=== PATIENT | female | born 1960 | race Caucasian/White ===

== ENCOUNTER 2021-05-10 05:35 | Emergency (ER) | payer OTHER, MEDICAID, SELFPAY ==
[2021-05-10 05:45] VITALS: BP 153/89; PULSE 88; RESP 16; TEMP 36.6; O2SAT 99; BMI 27.3
--- NOTE | 2021-05-10 05:53 | ED.DENTAL ---
HPI - Dental/Oral General Chief complaint: Dental/Oral Stated complaint: broken tooth, thinks abscess in tooth Time Seen by Provider: 05/10/21 05:49 Source: patient Mode of arrival: Ambulatory History of Present Illness HPI Narrative: 60-year-old woman presents with 2 days of increasing dental pain left upper quadrant now radiating a up into the maxillary area with concerns of increasing swelling. She describes Heights hypersensitivity entire area even to brushing. She has multiple missing teeth and overall poor dentition. No significant cervical adenopathy. Related Data Previous Rx's Medication Instructions Recorded amoxicillin 500 mg capsule 500 mg PO TID #21 cap 05/10/21 Allergies Allergy/AdvReac Type Severity Reaction Status Date / Time Sulfa (Sulfonamide Allergy Verified 05/10/21 05:45 Antibiotics) Review of Systems Review of Systems Narrative: Remainder of complete review of systems is otherwise unremarkable except for that included in the HPI. Patient History Social History Smoking Status: Current every day smoker Smoking Status: Current every day smoker alcohol intake frequency: holidays/special occasions only Substance Use Type: does not use Exam Narrative Exam Narrative: General: Alert appropriate in no acute distress H EENT: Mild fullness over the left maxilla. Multiple teeth missing in the left upper quadrant it is difficult to tell exactly which tooth is causing the most problems Respiratory: Able to speak in full sentences, no obvious respiratory distress Skin: No obvious rashes, warm and dry Neurologic: Grossly intact no obvious asymmetries or abnormalities Psych: appropriate insight and affect, cooperative Initial Vital Signs Initial Vital Signs: Vital Signs Temperature 97.8 F 05/10/21 05:45 Pulse Rate 88 05/10/21 05:45 Respiratory Rate 16 05/10/21 05:45 Blood Pressure 153/89 H 05/10/21 05:45 Pulse Oximetry 99 05/10/21 05:45 Course Orders Ordered: Discontinued Medications Acetaminophen (Acetaminophen 325 Mg Tablet) 325 mg PO NOW ONE Stop: 05/10/21 05:50 Amoxicillin (Amoxicillin 250 Mg Capsule) 500 mg PO NOW ONE Stop: 05/10/21 05:50 Ibuprofen (Ibuprofen 400 Mg Tablet) 400 mg PO NOW ONE Stop: 05/10/21 05:50 Vital Signs Vital signs: Vital Signs - 8 hr 05/10/21 05:45 Temperature 97.8 F Pulse Rate 88 Respiratory Rate 16 Blood Pressure 153/89 H Pulse Oximetry 99 MDM - Dental/Oral MDM Narrative Medical decision making narrative: 60-year-old woman with multiple broken teeth and overall poor dental hygiene presents with 2 days of increasing pain in the left upper quadrant. Consistent with developing dental infection. She is placed on amoxicillin. Encouraged her to schedule appointment with see Mar where she has previously been seen. No evidence of sinusitis, meningitis or obvious draining abscess. She is safe for home discharge Discharge Plan Departure Patient Disposition: Home Clinical Impression: Toothache, Dental abscess Instructions: DI for Dental Pain Activity Restrictions/Additional Instructions: I am sorry that your teeth are bothering you so much With increased pain sensitivity and swelling on the left side I do suspect that your developing a dental infection. Using 400 mg of ibuprofen (2 [id number] pills) and 1 Tylenol every 6 hours can be very helpful in controlling pain. I am going to give you 5 days of amoxicillin, 3 times a day. Well medications can help with the symptoms definitive treatment for your issues is going to be with the dentist. I would encourage you to schedule an appointment with see Mar even if it does and up being a month in the future. I hope you heal quickly Prescriptions: New amoxicillin 500 mg capsule 500 mg PO TID Qty: 21 RF: 0
[2021-05-10] MEDS: ACETAMINOPHEN 325 MG TABLET PO (05:55)
[2021-05-10] MEDS: IBUPROFEN 400 MG TABLET PO (05:55)
[2021-05-10] MEDS: AMOXICILLIN 250 MG CAPSULE 500 MG PO (05:55)
== END 2021-05-10 05:57 | disposition home or self-care (01) ==
PROVIDERS: Emergency Provider Emergency Medicine
DX: K04.7 Periapical abscess without sinus (principal); K08.89 Other specified disorders of teeth and supporting structures
CPT/HCPCS: 99283

== ENCOUNTER 2022-04-25 15:51 | Emergency (ER) | payer OTHER, MEDICAID, SELFPAY ==
[2022-04-25] VITALS (9 sets, daily range): BP systolic 109–140; BP diastolic 69–91; PULSE 51–82; RESP 12–18; TEMP 36.1; O2SAT 95–100; BMI 25.2
--- NOTE | 2022-04-25 16:11 | DI.RAD.S_ITS ---
PROCEDURE: XR CHEST 2V INDICATIONS: cough for one month TECHNIQUE: 2 views of the chest were acquired. COMPARISON: None. FINDINGS: Surgical changes and devices: None. Lungs and pleura: Lungs are clear. No pleural effusions or pneumothorax. Mediastinum: Mediastinal contours are normal. Heart size is normal. Bones and chest wall: No suspicious bony abnormalities. Soft tissues appear unremarkable. IMPRESSION: No acute cardiopulmonary abnormality. Dictated by: Naseem Santos M.D. on 04/25/2022 at 16:09 Approved by: Naseem Santos M.D. on 04/25/2022 at 16:10
[2022-04-25 16:29] LABS: COVID19 -Nasal RAPID Negative (Negative)
--- NOTE | 2022-04-25 17:19 | ED.URI ---
HPI - URI/Sore Throat <SHANE Hook - Last Filed: 04/25/22 19:10> General Chief Complaint: Upper Respiratory Symptoms Stated Complaint: chest [id number] Time Seen by Provider: 04/25/22 17:04 Source: patient Mode of arrival: Ambulatory History of Present Illness HPI Narrative: 61-year-old female presents to the emergency department with complaints of cough and runny nose x1 month. Patient states that she is feeling a lot of pressure on her chest and feels like an elephant is sitting on her chest. Patient states that she has had a hacking productive cough for 2 months. Patient reports bilateral lower leg swelling this morning only. Patient admits to smoking daily but only a few cigarettes. Patient has a history methamphetamine use. Patient denies any history asthma, pneumonia or COPD. Related Data Previous Rx's Medication Instructions Recorded amoxicillin 500 mg capsule 500 mg PO TID #21 caps 05/10/21 albuterol sulfate 90 mcg/actuation 2 puff inhalation Q4-6H PRN 04/25/22 aerosol inhaler (ProAir HFA) shortness of breath or wheezing #6.7 grams prednisone 20 mg tablet 20 mg PO DAILY copd exacerbation 04/25/22 #15 tabs Allergies Allergy/AdvReac Type Severity Reaction Status Date / Time Sulfa (Sulfonamide Allergy Verified 05/10/21 05:45 Antibiotics) Review of Systems <SHANE Hook - Last Filed: 04/25/22 19:10> Review of Systems Narrative: Patient denies current fever, chills, blurry or double vision, earache, sore throat, new loss of smell or taste, chest pain, N&V, diarrhea, constipation, abdominal pain, dysuria, frequency, urgency, muscle or body aches, skin changes, numbness & tingling or limb weakness. Patient History <SHANE Hook - Last Filed: 04/25/22 19:10> Social History Smoking Status: Current every day smoker Smoking Status: Current every day smoker tobacco type: cigarettes alcohol intake frequency: holidays/special occasions only Substance Use Type: former substance user and methamphetamine Exam <SHANE Hook - Last Filed: 04/25/22 19:10> Initial Vital Signs Initial Vital Signs: Vital Signs Temperature 97.0 F L 04/25/22 16:02 Pulse Rate 82 04/25/22 16:02 Respiratory Rate 16 04/25/22 16:02 Blood Pressure 140/91 H 04/25/22 16:02 Pulse Oximetry 99 04/25/22 16:02 Oxygen Delivery Method 04/25/22 16:02 Verified Const General: cooperative and disheveled HENMT Head: normocephalic Eyes Pupils: PERRL Resp Effort & Inspection: cough Quality of cough: wet Auscultation: rhonchi and wheezes GI Palpation: soft Neuro General: patient alert and patient oriented x3 Extrem Right lower extremity: edema Details: 1+ Left lower extremity: edema Details: 1+ Psych Appearance: disheveled <Violeta Carmona DO - Last Filed: 04/27/22 09:09> Initial Vital Signs Initial Vital Signs: Vital Signs Temperature 97.0 F L 04/25/22 16:02 Pulse Rate 82 04/25/22 16:02 Respiratory Rate 16 04/25/22 16:02 Blood Pressure 140/91 H 04/25/22 16:02 Pulse Oximetry 99 04/25/22 16:02 Oxygen Delivery Method 04/25/22 16:02 Course <SHANE Hook - Last Filed: 04/25/22 19:10> Orders Ordered: Discontinued Medications Albuterol/Ipratropium (Albuterol/Ipratropium 3 Ml Ampul) 3 ml INH NOW ONE Stop: 04/25/22 17:52 Last Admin: 04/25/22 18:21 Dose: 3 ml Documented By: MICHAEL Vital Signs Vital signs: Vital Signs - 8 hr 04/25/22 16:02 04/25/22 18:22 04/25/22 16:23 Temperature 97.0 F L Pulse Rate 82 73 64 Respiratory Rate 16 12 Blood Pressure 140/91 H Pulse Oximetry 99 98 98 Oxygen Delivery Method Room Air Room Air 04/25/22 16:30 04/25/22 17:00 04/25/22 17:30 Temperature Pulse Rate 63 55 L 53 L Respiratory Rate Blood Pressure Pulse Oximetry 98 95 100 Oxygen Delivery Method 04/25/22 17:44 04/25/22 17:44 04/25/22 18:00 Temperature Pulse Rate 73 Respiratory Rate 16 Blood Pressure 109/72 114/69 Pulse Oximetry 96 Oxygen Delivery Method 04/25/22 18:00 04/25/22 18:30 04/25/22 18:30 Temperature Pulse Rate 72 51 L Respiratory Rate 18 Blood Pressure 137/81 Pulse Oximetry 96 100 Oxygen Delivery Method 04/25/22 18:30 Temperature Pulse Rate 71 Respiratory Rate 17 Blood Pressure Pulse Oximetry 100 Oxygen Delivery Method <Violeta Carmona DO - Last Filed: 04/27/22 09:09> Orders Ordered: Discontinued Medications Albuterol/Ipratropium (Albuterol/Ipratropium 3 Ml Ampul) 3 ml INH NOW ONE Stop: 04/25/22 17:52 Last Admin: 04/25/22 18:21 Dose: 3 ml Documented By: MICHAEL Vital Signs Vital signs: Vital Signs - 8 hr 04/25/22 16:02 04/25/22 18:22 04/25/22 16:23 Temperature 97.0 F L Pulse Rate 82 73 64 Respiratory Rate 16 12 Blood Pressure 140/91 H Pulse Oximetry 99 98 98 Oxygen Delivery Method Room Air Room Air 04/25/22 16:30 04/25/22 17:00 04/25/22 17:30 Temperature Pulse Rate 63 55 L 53 L Respiratory Rate Blood Pressure Pulse Oximetry 98 95 100 Oxygen Delivery Method 04/25/22 17:44 04/25/22 17:44 04/25/22 18:00 Temperature Pulse Rate 73 Respiratory Rate 16 Blood Pressure 109/72 114/69 Pulse Oximetry 96 Oxygen Delivery Method 04/25/22 18:00 04/25/22 18:30 04/25/22 18:30 Temperature Pulse Rate 72 51 L Respiratory Rate 18 Blood Pressure 137/81 Pulse Oximetry 96 100 Oxygen Delivery Method 04/25/22 18:30 Temperature Pulse Rate 71 Respiratory Rate 17 Blood Pressure Pulse Oximetry 100 Oxygen Delivery Method MDM - URI/Sore Throat <SHANE Hook - Last Filed: 04/25/22 19:10> Differential Diagnosis Differential diagnosis: Likely upper respiratory infection and other (COPD Exacerbation) Lab Data Result diagrams: 04/25/22 17:43 04/25/22 17:43 Labs: Lab Results 04/25/22 04/25/22 04/25/22 Range/Units 16:08 17:43 17:43 WBC 5.5 (4.5-11.0) X10^3/uL RBC 4.58 (4.0-5.2) X10^6/uL Hgb 13.5 (12.0-16.0) g/dL Hct 39.6 (36-46) % MCV 86.3 (80-100) fL MCH 29.5 (26-34) PG MCHC 34.2 (30-36) % RDW 13.3 (11.6-14.8) % Plt Count 194 (150-400) X10^3/uL Neut % (Auto) 70.1 (50-75) % Lymph % (Auto) 22.0 L (25-40) % [place] % (Auto) 5.7 (3-14) % Eos % (Auto) 1.6 L (2-4) % Baso % (Auto) 0.6 (0-2) % Neut # (Auto) 3800 (0609-7410) /uL Lymph # (Auto) 1200 (3604-2107) /uL [place] # (Auto) 300 (0-900) /uL Eos # (Auto) 100 (0-450) /uL Baso # (Auto) 0 (0-100) /uL Sodium 138 (137-145) mmol/L Potassium 4.0 (3.4-5.1) mmol/L Chloride 106 (98-107) mmol/L Carbon Dioxide 28 (22-32) mmol/L BUN 15 (7-17) mg/dL Creatinine 0.62 (0.52-1.04) mg/dL Estimated GFR > 60 (>60) mL/min BUN/Creatinine Ratio 24.2 H (6-22) Glucose 113 H (80-110) mg/dL Calcium 8.6 (8.4-10.2) mg/dL Magnesium (1.6-2.3) mg/dL Total Bilirubin 0.4 (0.2-1.3) mg/dL AST 30 (14-36) IU/L ALT 28 (<35) IU/L Alkaline Phosphatase 94 (38-126) U/L Total Creatine Kinase 46 (30-135) U/L CK-MB (CK-2) TNP CK-MB (CK-2) Rel Index TNP Troponin I < 0.012 (0.01-0.034) ng/mL Total Protein 6.6 (6.3-8.2) g/dL Albumin 3.7 (3.5-5.0) g/dL Globulin 2.9 (1.7-4.1) g/dL Albumin/Globulin Ratio 1.3 (1.0-2.8) Lipase 60 (23-300) U/L SARS-CoV-2 (PCR) Negative (Negative) 04/25/22 Range/Units 17:43 WBC (4.5-11.0) X10^3/uL RBC (4.0-5.2) X10^6/uL Hgb (12.0-16.0) g/dL Hct (36-46) % MCV (80-100) fL MCH (26-34) PG MCHC (30-36) % RDW (11.6-14.8) % Plt Count (150-400) X10^3/uL Neut % (Auto) (50-75) % Lymph % (Auto) (25-40) % [place] % (Auto) (3-14) % Eos % (Auto) (2-4) % Baso % (Auto) (0-2) % Neut # (Auto) (4380-1967) /uL Lymph # (Auto) (7394-7308) /uL [place] # (Auto) (0-900) /uL Eos # (Auto) (0-450) /uL Baso # (Auto) (0-100) /uL Sodium (137-145) mmol/L Potassium (3.4-5.1) mmol/L Chloride (98-107) mmol/L Carbon Dioxide (22-32) mmol/L BUN (7-17) mg/dL Creatinine (0.52-1.04) mg/dL Estimated GFR (>60) mL/min BUN/Creatinine Ratio (6-22) Glucose (80-110) mg/dL Calcium (8.4-10.2) mg/dL Magnesium 2.2 (1.6-2.3) mg/dL Total Bilirubin (0.2-1.3) mg/dL AST (14-36) IU/L ALT (<35) IU/L Alkaline Phosphatase (38-126) U/L Total Creatine Kinase (30-135) U/L CK-MB (CK-2) CK-MB (CK-2) Rel Index Troponin I (0.01-0.034) ng/mL Total Protein (6.3-8.2) g/dL Albumin (3.5-5.0) g/dL Globulin (1.7-4.1) g/dL Albumin/Globulin Ratio (1.0-2.8) Lipase (23-300) U/L SARS-CoV-2 (PCR) (Negative) Imaging Data Chest x-ray: Radiologist's Impression: [address] [address] XRay Report Signed Patient: Mirlande Brower MR#: [id number] : 1960 Acct:[id number] Age/Sex: 61 / F Date of Service: 04/25/22 Loc: ED Accession Number: [id number] ?? Procedure: XR chest 2V Ordering Provider: Violeta Carmona D.O. PROCEDURE:? XR CHEST 2V ? INDICATIONS:? cough for one month ? TECHNIQUE:? 2 views of the chest were acquired.? ? COMPARISON:? None. ? FINDINGS:? ? Surgical changes and devices:? None.? ? Lungs and pleura:? Lungs are clear.? No pleural effusions or pneumothorax.? ? Mediastinum:? Mediastinal contours are normal.? Heart size is normal.? ? Bones and chest wall:? No suspicious bony abnormalities.? Soft tissues appear unremarkable.? ? IMPRESSION:? No acute cardiopulmonary abnormality. ? ? ? Dictated by: Naseem Santos M.D. on 04/25/2022 at 16:09 ? ? Approved by: Naseem Santos M.D. on 04/25/2022 at 16:10 ? ECG Data Attestation: I personally reviewed and interpreted this ECG as follows: (Normal sinus rhythm) MDM Narrative Medical decision making narrative: 61-year-old female presenting to the emergency department with reports of difficulty breathing and heavy sensation on her chest. Patient is a daily smoker. EKG is normal sinus rhythm rate [ ] and free of any signs of ischemia or ectopy. No ST segmental elevation or depression. No T wave inversions. Chest x-ray was negative for any cardiopulmonary abnormality. COVID test was negative. Labs were normal. Duoneb administered and ease of breathing and lung sounds improved significantly. I suspect this is a COPD exacerbation and will treat with a tapering dose steroids and a ProAir inhaler. Return precautions discussed, discussed plan of care with patient, who is agreeable with course of action. <Violeta Carmona, - Last Filed: 04/27/22 09:09> Lab Data Labs: Lab Results 04/25/22 04/25/22 04/25/22 Range/Units 16:08 17:43 17:43 WBC 5.5 (4.5-11.0) X10^3/uL RBC 4.58 (4.0-5.2) X10^6/uL Hgb 13.5 (12.0-16.0) g/dL Hct 39.6 (36-46) % MCV 86.3 (80-100) fL MCH 29.5 (26-34) PG MCHC 34.2 (30-36) % RDW 13.3 (11.6-14.8) % Plt Count 194 (150-400) X10^3/uL Neut % (Auto) 70.1 (50-75) % Lymph % (Auto) 22.0 L (25-40) % [place] % (Auto) 5.7 (3-14) % Eos % (Auto) 1.6 L (2-4) % Baso % (Auto) 0.6 (0-2) % Neut # (Auto) 3800 (5394-0599) /uL Lymph # (Auto) 1200 (0843-3255) /uL [place] # (Auto) 300 (0-900) /uL Eos # (Auto) 100 (0-450) /uL Baso # (Auto) 0 (0-100) /uL Sodium 138 (137-145) mmol/L Potassium 4.0 (3.4-5.1) mmol/L Chloride 106 (98-107) mmol/L Carbon Dioxide 28 (22-32) mmol/L BUN 15 (7-17) mg/dL Creatinine 0.62 (0.52-1.04) mg/dL Estimated GFR > 60 (>60) mL/min BUN/Creatinine Ratio 24.2 H (6-22) Glucose 113 H (80-110) mg/dL Calcium 8.6 (8.4-10.2) mg/dL Magnesium (1.6-2.3) mg/dL Total Bilirubin 0.4 (0.2-1.3) mg/dL AST 30 (14-36) IU/L ALT 28 (<35) IU/L Alkaline Phosphatase 94 (38-126) U/L Total Creatine Kinase 46 (30-135) U/L CK-MB (CK-2) TNP CK-MB (CK-2) Rel Index TNP Troponin I < 0.012 (0.01-0.034) ng/mL Total Protein 6.6 (6.3-8.2) g/dL Albumin 3.7 (3.5-5.0) g/dL Globulin 2.9 (1.7-4.1) g/dL Albumin/Globulin Ratio 1.3 (1.0-2.8) Lipase 60 (23-300) U/L SARS-CoV-2 (PCR) Negative (Negative) 04/25/22 Range/Units 17:43 WBC (4.5-11.0) X10^3/uL RBC (4.0-5.2) X10^6/uL Hgb (12.0-16.0) g/dL Hct (36-46) % MCV (80-100) fL MCH (26-34) PG MCHC (30-36) % RDW (11.6-14.8) % Plt Count (150-400) X10^3/uL Neut % (Auto) (50-75) % Lymph % (Auto) (25-40) % [place] % (Auto) (3-14) % Eos % (Auto) (2-4) % Baso % (Auto) (0-2) % Neut # (Auto) (1281-2333) /uL Lymph # (Auto) (5651-3521) /uL [place] # (Auto) (0-900) /uL Eos # (Auto) (0-450) /uL Baso # (Auto) (0-100) /uL Sodium (137-145) mmol/L Potassium (3.4-5.1) mmol/L Chloride (98-107) mmol/L Carbon Dioxide (22-32) mmol/L BUN (7-17) mg/dL Creatinine (0.52-1.04) mg/dL Estimated GFR (>60) mL/min BUN/Creatinine Ratio (6-22) Glucose (80-110) mg/dL Calcium (8.4-10.2) mg/dL Magnesium 2.2 (1.6-2.3) mg/dL Total Bilirubin (0.2-1.3) mg/dL AST (14-36) IU/L ALT (<35) IU/L Alkaline Phosphatase (38-126) U/L Total Creatine Kinase (30-135) U/L CK-MB (CK-2) CK-MB (CK-2) Rel Index Troponin I (0.01-0.034) ng/mL Total Protein (6.3-8.2) g/dL Albumin (3.5-5.0) g/dL Globulin (1.7-4.1) g/dL Albumin/Globulin Ratio (1.0-2.8) Lipase (23-300) U/L SARS-CoV-2 (PCR) (Negative) ECG Data Interpretation: Mathew-normal sinus rhythm rate 69 MA interval 132 QRS and [address] changes or T-wave inversions no priors to compare Discharge Plan Departure Patient Disposition: Home Clinical Impression: Acute exacerbation of chronic obstructive pulmonary disease Instructions: DI for Chronic Obstructive Pulmonary Disease Activity Restrictions/Additional Instructions: *You have been diagnosed with a COPD exacerbation. Your chest x-ray was normal, your COVID test was negative, your EKG was normal and your labs were with all within normal limits. Please take the prednisone as directed and use the ProAir inhaler as needed. For worsening symptoms that include chest pain, inability to breathe, intolerable pain, etc. please see your PCP or come into the emergency room immediately. *What to do: *Please continue to take your regular medications as directed. [ x] New medication prescriptions sent to your pharmacy: [ ] [ ] New medication written as a paper prescription [ ] No new medications given *Please follow up with your primary care provider in 2-3 days, call for an appointment. Let them know you were seen in the Emergency Department and that we ask that you be seen in follow up. We will electronically transmit a record of today's note if your PCP is in our system *If you do not have a primary care provider please contact the [facility] Resource line at [phone]. They will ask some questions about your medical history and help get you set up with a doctor in the community. *Return to Emergency Department if you should have any new, worsening or concerning symptoms, such as [fever greater than 101 F, shaking chills, worsening pain, persistent vomiting or other bothersome symptoms] Prescriptions: New prednisone 20 mg tablet 20 mg PO DAILY Qty: 15 0RF Rx Instructions: Take 3 pills by mouth once a day x3 days, then take 2 pills by mouth once a day x2 days, then take 1 pill by mouth once a day x2 days. albuterol sulfate [ProAir HFA] 90 mcg/actuation HFA aerosol inhaler 2 puff inhalation Q4-6H PRN (Reason: shortness of breath or wheezing) Qty: 6.7 0RF Rx Instructions: Take 2 puffs every 4-6 hours as needed for cough, wheezing or shortness of breath. No Action amoxicillin 500 mg capsule 500 mg PO TID Qty: 21 0RF Referrals: Gwen Pantoja MD [Primary Care Provider] - Visit Report Forms: Patient Portal/API <Violeta Carmona DO - Last Filed: 04/27/22 09:09> Cosign ED Attending Ariana Attestation: I was immediately available in the department for consultation. Documentation has been reviewed. I agree with assessment and plan.
[2022-04-25 18:07] LABS: Add Manual Diff / Slide Review NO; Basophils Absolute Auto 0 /uL (0-100); Basophils Percent Auto 0.6 % (0-2); Eosinophils Absolute Auto 100 /uL (0-450); Eosinophils Percent Auto 1.6 % (2-4); Hematocrit 39.6 % (36-46); Hemoglobin 13.5 g/dL (12.0-16.0); Lymphocytes Absolute Auto 1200 /uL (1100-4500); Mean Corpuscular HGB Conc 34.2 % (30-36); Mean Corpuscular Hemoglobin 29.5 PG (26-34); Mean Corpuscular Volume 86.3 fL (80-100); Monocytes Absolute Auto 300 /uL (0-900); Monocytes Percent Auto 5.7 % (3-14); Neutrophils Absolute Auto 3800 /uL (1500-7000); Neutrophils Percent Auto 70.1 % (50-75); Platelet Count 194 X10^3/uL (150-400); Red Blood Cell Count 4.58 X10^6/uL (4.0-5.2); Red Cell Distribution Width 13.3 % (11.6-14.8); White Blood Cell Count 5.5 X10^3/uL (4.5-11.0)
[2022-04-25 18:16] LABS: Alanine Aminotransferase 28 IU/L (<35); Albumin 3.7 g/dL (3.5-5.0); Albumin Globulin Ratio 1.3 (1.0-2.8); Alkaline Phosphatase 94 U/L (38-126); Aspartate Aminotransferase 30 IU/L (14-36); BUN Creatinine Ratio 24.2 (6-22); Bilirubin Total 0.4 mg/dL (0.2-1.3); Blood Urea Nitrogen 15 mg/dL (7-17); Calcium 8.6 mg/dL (8.4-10.2); Carbon Dioxide 28 mmol/L (22-32); Chloride 106 mmol/L (98-107); Creatine Kinase 46 U/L (30-135); Estimated Glomerular Filt Rate > 60 mL/min (>60); Globulin 2.9 g/dL (1.7-4.1); Glucose 113 mg/dL (80-110); HEMOLYSIS 21 (0-50); Lipase 60 U/L (23-300); Sodium 138 mmol/L (137-145); Total Protein 6.6 g/dL (6.3-8.2)
[2022-04-25 18:17] LABS: Magnesium 2.2 mg/dL (1.6-2.3)
[2022-04-25] MEDS: ALBUTEROL/IPRATROPIUM 3 ML AMPUL INH (18:21)
[2022-04-25 18:28] LABS: Troponin I < 0.012 ng/mL (0.01-0.034)
== END 2022-04-25 19:03 | disposition home or self-care (01) ==
PROVIDERS: Emergency Medicine; Emergency Provider Registered Nurse; PCP Family Medicine
DX: J44.1 Chronic obstructive pulmonary disease with (acute) exacerbation (principal); R07.9 Chest pain, unspecified; Z20.822 Contact with and (suspected) exposure to COVID-19
CPT/HCPCS: 36415; 71046; 80053; 82550; 83690; 83735; 84484; 85025; 87635; 93005; 93010; 94640; 99284; C9803